=== PATIENT | female | born 1955 | race African-American/Black ===

== ENCOUNTER 2025-02-10 18:29 | Emergency (ER) | payer OTHER ==
[~2025-02-10] VITALS: Ht 167.6 cm; Wt 85.0 kg
[2025-02-10 18:38] VITALS: BP 157/84; PULSE 78; RESP 16; TEMP 36.9; O2SAT 98
[2025-02-10 19:23] LABS: BASOPHILS % 2.4 % (0.0-2.0); EOSINOPHILS % 2.5 % (0.0-5.0); HEMATOCRIT. 30.1 % (36.0-48.0); HEMOGLOBIN. 9.8 g/dL (12.0-16.0); LYMPHOCYTES % 24.0 % (20.0-50.0); MEAN PLATELET VOLUME 7.7 fl (7.4-10.4); MONOCYTES % 11.1 % (2.0-8.0); NEUTROPHILS % 60.0 % (40.0-76.0); PLATELET 284 x1000/uL (130-400); RED BLOOD CELL COUNT 3.53 mill/uL (4.2-5.4); RED CELL DISTRIBUTION WIDTH 15.2 % (11.6-14.6)
[2025-02-10 19:36] LABS: CREATININE 0.8 mg/dL (0.6-1.0)
[2025-02-10 19:37] LABS: UREA NITROGEN BLOOD 13 mg/dL (9-23)
[2025-02-10] MEDS ORDERED: IBUPROFEN 400MG TABLET PO ONE (22:45)
[2025-02-10] MEDS ORDERED: CYCLOBENZAPRINE 10MG TABLET PO ONE (22:45)
== END 2025-02-10 23:00 | disposition left against medical advice (07) ==
LOC: ER 18:29
DX: R25.2 Cramp and spasm (principal); I10 Essential (primary) hypertension; E78.00 Pure hypercholesterolemia, unspecified
CPT/HCPCS: 36415; 80048; 85025; 99283